=== PATIENT | male | born 1955 | race Caucasian/White ===

== ENCOUNTER 2019-10-04 16:47 | Emergency (ER) | payer SELFPAY ==
[~2019-10-04] VITALS: Ht 177.8 cm; Wt 95.3 kg
[~2019-10-04 16:47] MED LIST: metroNIDAZOLE 500 MG TABLET PO SCH
--- NOTE | 2019-10-04 17:10 | NUR ---
RECEIVED AND IN ROOM 7. VOMITING, EMESIS BAG PROVIDED
[2019-10-04] MEDS ORDERED: NACL 0.9% 1,000 ML IV ONE (17:16)
--- NOTE | 2019-10-04 17:20 | NUR ---
DR GALDAMEZ IN TO ASSESS
--- NOTE | 2019-10-04 18:00 | NUR ---
RESP UNLABORED, CLEAR MENTATION AND SPEECH, DENIES CP/SOB. VOMITNG UPON ARRIVAL DIAPHORETIC, C/O SEVERE ABD PAIN, ADMITTED TO EATING SPOILED FOOD WHILE LIVING HOMELESS ABD PAIN SUDDEN ONSET 2 HOURS AGO.
[2019-10-04 18:09] LABS: HEMATOCRIT 45.7 % (36-54)
[2019-10-04 18:22] VITALS: BP_SYST 147
[2019-10-04 18:31] LABS: CALCIUM 9.7 mg/dL (8.4-11.0); CREATININE 1.22 mg/dL (0.55-1.30); HEMOGLOBIN 15.2 g/dL (14.0-18.0); MEAN CORPUSCULAR HEMOGLOBIN 31 pg (27-31); MEAN CORPUSCULAR HGB CONC 33 % (32-36); MEAN CORPUSCULAR VOLUME 94 fL (79.0-98.0); PLATELET COUNT (AUTO) 332 K/uL (130-430); POTASSIUM 3.7 mmol/L (3.5-5.1); RED BLOOD CELL COUNT(AUTO) 4.88 MIL/uL (4.2-6.2); RED CELL DISTRIBUTION WIDTH 14.7 % (9.0-15.0); WHITE BLOOD COUNT (AUTO) 18.3 K/uL (4.8-10.8)
[2019-10-04 18:33] LABS: PROTHROMBIN TIME 10.3 SECS (9.5-12.5)
[2019-10-04 18:36] LABS: ALBUMIN 4.1 g/dL (3.4-4.8); TOTAL BILIRUBIN 0.5 mg/dL (0.0-1.0)
--- NOTE | 2019-10-04 18:50 | NUR ---
IV HL 18 GUAGE LT AC, LABS EKG AND URINE PENDING. IV HYDRATION
[2019-10-04 18:54] LABS: BAND % (MANUAL) 16 % (0-6); BASOPHILS % (MANUAL) 0 % (0-2); EOSINOPHILS % (MANUAL) 0 % (0-7); LYMPHOCYTES % (MANUAL) 4 % (20-46); MONOCYTES % (MANUAL) 3 % (0-11)
--- NOTE | 2019-10-04 19:00 | NUR ---
RESTLESS, VOMITING, C/O INCREASED PAIN.
[2019-10-04 19:08] LABS: BILIRUBIN,URINE NEGATIVE (NEGATIVE); BLOOD, URINE NEGATIVE (NEGATIVE); CLARITY/URINE CLEAR (CLEAR); COLOR,URINE YELLOW (YELLOW); GLUCOSE,URINE NEGATIVE (NEGATIVE); KETONES,URINE 1+ (NEGATIVE); LEUKOCYTE ESTERASE ,URINE NEGATIVE (NEGATIVE); NITRITE, URINE NEGATIVE (NEGATIVE); PROTEIN URINE TRACE (NEGATIVE); UROBILINOGEN,URINE 0.2 (0.2-1.0)
--- NOTE | 2019-10-04 19:10 | NUR ---
DR GALDAMEZ IN TO ASSESS
[2019-10-04] MEDS ORDERED: metroNIDAZOLE 500 mg/NS 100 ML IV ONE (19:15)
[2019-10-04] MEDS ORDERED: IOHEXOL 100 ML IV ONE (20:34)
--- NOTE | 2019-10-04 20:42 | NUR ---
BACK FROM CT
[2019-10-04] MEDS ORDERED: ONDANSETRON HCL 4 MG/2 ML VIAL IVP ONE (21:30)
[2019-10-04] MEDS ORDERED: KETOROLAC TROMETHAMINE 30 MG VIAL IVP ONE (21:30)
[2019-10-04] MEDS ORDERED: ONDANSETRON HCL 4 MG/2 ML VIAL ONE (21:36)
[2019-10-04] MEDS ORDERED: CIPROFLOXACIN LACT 400 MG/D5W 200 ML IV ONE (21:45)
[2019-10-04] MEDS ORDERED: NACL 0.9% 1,000 ML IV SCH (22:12)
[2019-10-04] MEDS ORDERED: ZOLPIDEM TARTRATE 5 MG TABLET PO PRN (22:15)
[2019-10-04] MEDS ORDERED: ACETAMINOPHEN 500 MG TABLET PO PRN (22:15)
[2019-10-04] MEDS ORDERED: HYDROcodone/ACETAMIN 7.5-325 MG TAB PO PRN (22:15)
[2019-10-04] MEDS ORDERED: DOCUSATE SODIUM 100 MG/10 ML UDC PO PRN (22:15)
[2019-10-04] MEDS ORDERED: ONDANSETRON HCL 4 MG/2 ML VIAL IVP PRN (22:15)
[2019-10-04] MEDS ORDERED: POTASSIUM CHLORIDE 20 MEQ TAB.PRT.SR PO PRN (22:15)
--- NOTE | 2019-10-04 22:23 | NUR ---
ADMIT ORDERS RECEIVED, PT AWARE AND AGREE TO CARE
[2019-10-04 22:45] LABS: BARBITURATE, URINE NEGATIVE (NEG <=200); BENZODIAZEPINE, URINE NEGATIVE (NEG <=150); CANNABINOID, URINE POSITIVE (NEG <=50); COCAINE, URINE NEGATIVE (NEG <=150); METHAMPHETAMINES SCREEN,URINE NEGATIVE (NEG <=500); OPIATE, URINE NEGATIVE (NEG <=100); PHENCYCLIDINE SCREEN,URINE NEGATIVE (NEG <=25); UR TRICYCLIC ANTIDEPRESSANTS NEGATIVE (NEG <=300); URINE AMPHETAMINE NEGATIVE (NEG <=500); URINE METHADONE NEGATIVE (NEG <=200); URINE OXYCODONE SCREEN NEGATIVE (NEG <=100); URINE PROPOXYPHENE SCREEN NEGATIVE (NEG <=300)
[2019-10-04 22:49] LABS: FREE T4 (FREE THYROXINE) 0.8 ng/dL (0.6-1.6); PHOSPHORUS 2.7 mg/dL (2.7-4.5); THYROID STIMULATING HORMONE 4.13 uIu/mL (0.34-4.82)
[2019-10-04 23:19] VITALS: BP_SYST 101
--- NOTE | 2019-10-05 00:15 | NUR ---
Pt resting, symmetric chest rise and fall. No complaints at this time. Will continue to monitor.
--- NOTE | 2019-10-05 02:00 | NUR ---
Pt resting, no complaints at this time. Pt has symmetric chest rise and fall. No respiratory distress.
[2019-10-05 05:01] LABS: CALCIUM 8.4 mg/dL (8.4-11.0); CREATININE 1.24 mg/dL (0.55-1.30); POTASSIUM 3.8 mmol/L (3.5-5.1)
[2019-10-05 05:27] LABS: BASOPHILS # (AUTO) 0.1 K/uL (0.0-0.2); BASOPHILS % (AUTO) 0.4 % (0.0-2.0); EOSINOPHILS % (AUTO) 0.2 % (0.0-4.0); HEMATOCRIT 41.2 % (36-54); HEMOGLOBIN 13.8 g/dL (14.0-18.0); LYMPHOCYTES # (AUTO) 0.6 K/uL (1.0-5.5); MEAN CORPUSCULAR HEMOGLOBIN 31 pg (27-31); MEAN CORPUSCULAR HGB CONC 34 % (32-36); MEAN CORPUSCULAR VOLUME 93 fL (79.0-98.0); MONOCYTES # (AUTO) 0.7 K/uL (0.0-1.0); MONOCYTES % (AUTO) 4.2 % (1.7-9.3); NEUTROPHILS # (AUTO) 14.3 K/uL (1.8-7.7); NEUTROPHILS % (AUTO) 91.2 % (40.0-70.0); PLATELET COUNT (AUTO) 253 K/uL (130-430); RED BLOOD CELL COUNT(AUTO) 4.44 MIL/uL (4.2-6.2); WHITE BLOOD COUNT (AUTO) 15.7 K/uL (4.8-10.8)
[2019-10-05] MEDS ORDERED: cefTRIAXone 1 GM in D5W 50 ML IV SCH (06:00)
--- NOTE | 2019-10-05 06:27 | NUR ---
Pt moved to bed 6
--- NOTE | 2019-10-05 07:05 | NUR ---
Patient A&Ox4, sitting up in hospital bed.
--- NOTE | 2019-10-05 07:15 | NUR ---
REPORT FROM RAJESH JOHN /ANNA JOHN
[2019-10-05] MEDS ORDERED: cefTRIAXone 1 GM VIAL ONE (07:57)
[2019-10-05] MEDS ORDERED: PANTOPRAZOLE SODIUM 40 MG TAB PO SCH (09:00)
== END 2019-10-05 07:43 | disposition home or self-care (01) ==
LOC: SED 16:47 → UNDOADMIN 22:01 → SMU 22:01
DX: Z03.818 Encounter for observation for suspected exposure to other biological agents ruled out (principal); A05.9 Bacterial foodborne intoxication, unspecified; K52.9 Noninfective gastroenteritis and colitis, unspecified; J45.909 Unspecified asthma, uncomplicated; F12.90 Cannabis use, unspecified, uncomplicated
CPT/HCPCS: 36415; 71045; 74177; 80048; 80053; 80061; 80307; 81003; 82150; 82550; 83036; 83605; 83690; 83735; 83880; 84100; 84439; 84443; 84484; 85007; 85025; 85027; 85610; 85730; 87040; 87086; 93005; 96361; 96365; 96367; 96375; 99285; J0744; J1885; J2405; J3490; J7030; Q9967; U0003; C9803-CS; J0696; J7060

== ENCOUNTER 2020-05-14 18:38 | Emergency (ER) | payer SELFPAY ==
[~2020-05-14] VITALS: Ht 167.6 cm; Wt 81.6 kg
[2020-05-14 18:45] VITALS: BP_SYST 145
[2020-05-14] MEDS ORDERED: DIPH-TET-PERTUS Vaccine 0.5 ML VIAL (ADACEL) I.M. ONE (19:00)
[2020-05-14] MEDS ORDERED: BACITRACIN 1 GM OINT TP ONE (19:13)
[2020-05-14] MEDS ORDERED: NEOMY SULF/BACITRAC ZN/POLY 28 GM OINT..GM. TP ONE (19:15)
[2020-05-14] MEDS ORDERED: cephALEXin 500 MG CAPSULE PO ONE (19:15)
[2020-05-14 19:26] VITALS: BP_SYST 145
== END 2020-05-14 19:26 | disposition home or self-care (01) ==
LOC: SED 18:38
DX: S60.451A Superficial foreign body of left index finger, initial encounter (principal); J45.909 Unspecified asthma, uncomplicated; F17.210 Nicotine dependence, cigarettes, uncomplicated; F12.90 Cannabis use, unspecified, uncomplicated; Z88.0 Allergy status to penicillin; W22.8XXA Striking against or struck by other objects, initial encounter; Y93.89 Activity, other specified; Y92.89 Other specified places as the place of occurrence of the external cause; Y99.8 Other external cause status
CPT/HCPCS: 73140-TC; 90715; 99283

== ENCOUNTER 2021-02-20 18:47 | Inpatient (IN) | payer OTHER, SELFPAY ==
[~2021-02-20] VITALS: Ht 167.6 cm; Wt 68.0 kg
[2021-02-20 19:03] VITALS: BP_SYST 140
[2021-02-20 19:55] LABS: BASOPHILS % (AUTO) 0.3 % (0.0-2.0); EOSINOPHILS % (AUTO) 0.3 % (0.0-4.0); HEMATOCRIT 40.4 % (36-54); HEMOGLOBIN 13.8 g/dL (14.0-18.0); LYMPHOCYTES # (AUTO) 1.2 K/uL (1.0-5.5); LYMPHOCYTES % (AUTO) 9.8 % (20.5-51.5); MEAN CORPUSCULAR HEMOGLOBIN 32 pg (27-31); MEAN CORPUSCULAR HGB CONC 34 % (32-36); MEAN CORPUSCULAR VOLUME 94 fL (79.0-98.0); MONOCYTES # (AUTO) 0.7 K/uL (0.0-1.0); MONOCYTES % (AUTO) 5.8 % (1.7-9.3); NEUTROPHILS # (AUTO) 10.3 K/uL (1.8-7.7); NEUTROPHILS % (AUTO) 83.8 % (40.0-70.0); PLATELET COUNT (AUTO) 310 K/uL (130-430); RED BLOOD CELL COUNT(AUTO) 4.31 MIL/uL (4.2-6.2); RED CELL DISTRIBUTION WIDTH 13.6 % (9.0-15.0); WHITE BLOOD COUNT (AUTO) 12.2 K/uL (4.8-10.8)
[2021-02-20 20:29] LABS: ANION GAP 10 (5-15); CALCIUM 9.5 mg/dL (8.4-11.0); CHLORIDE 99 mmol/L (98-107); CREATININE 0.94 mg/dL (0.55-1.30); GLUCOSE 116 mg/dL (70-99); POTASSIUM 3.7 mmol/L (3.5-5.1); SODIUM SERUM 137 mmol/L (136-145); UREA NITROGEN, BLOOD 15 mg/dL (8-21)
[2021-02-20] MEDS ORDERED: KETOROLAC TROMETHAMINE 60 MG/2 ML VIAL IM ONE (20:30)
[2021-02-20 20:33] LABS: GFR AFRICAN AMERICAN 104 mL/min (>90)
[2021-02-20 20:39] LABS: ALANINE AMINOTRANSFERASE 26 U/L (12-78); ALBUMIN 3.6 g/dL (3.4-4.8); ASPARTATE AMINOTRANSFERASE 18 U/L (10-37); LIPASE 133 U/L (73-393); TOTAL BILIRUBIN 0.4 mg/dL (0.0-1.0)
[2021-02-20] MEDS ORDERED: MORPHINE 2 MG/ML INJ. SYRINGE IVP ONE (21:45)
[2021-02-21] MEDS ORDERED: MORPHINE 4 MG INJ. 4 MG/ML VIAL IVP ONE (01:15)
[2021-02-21] MEDS ORDERED: D5/0.45 NS 1,000 ML IV SCH (02:30)
[2021-02-21] MEDS ORDERED: ALBMDI INH (07:37)
[2021-02-21 08:05] VITALS: BP_SYST 150
[2021-02-21 08:23] LABS: BILIRUBIN,URINE 1+ (NEGATIVE); BLOOD, URINE NEGATIVE (NEGATIVE); CLARITY/URINE TURBID (CLEAR); COLOR,URINE YELLOW (YELLOW); GLUCOSE,URINE NEGATIVE (NEGATIVE); KETONES,URINE TRACE (NEGATIVE); LEUKOCYTE ESTERASE ,URINE NEGATIVE (NEGATIVE); NITRITE, URINE NEGATIVE (NEGATIVE); PROTEIN URINE TRACE (NEGATIVE); UROBILINOGEN,URINE 0.2 (0.2-1.0)
[2021-02-21 08:46] LABS: BACTERIA,URINE FEW /HPF (None Seen); RBC,URINE 0-3 /HPF (0-3); URINE AMORPHOUS URATE 2+ /HPF (None Seen); WBC,URINE 0-3 /HPF (0-3)
[2021-02-21 09:29] VITALS: BP_SYST 150
[2021-02-21 12:00] VITALS: BP_SYST 126
== END 2021-02-21 12:45 | disposition left against medical advice (07) | DRG 390 ==
LOC: SED 18:47 → SMU 02-21 02:22
PROVIDERS: ADMIT Preventive Medicine Preventive Medicine/Occupational Environmental Medicine; ATTEND Preventive Medicine Preventive Medicine/Occupational Environmental Medicine
DX: K56.699 Other intestinal obstruction unspecified as to partial versus complete obstruction (principal); J45.909 Unspecified asthma, uncomplicated; G62.9 Polyneuropathy, unspecified; Z53.29 Procedure and treatment not carried out because of patient's decision for other reasons; Z20.822 Contact with and (suspected) exposure to COVID-19; R73.9 Hyperglycemia, unspecified; D72.829 Elevated white blood cell count, unspecified; Z59.00 Homelessness unspecified; Z88.0 Allergy status to penicillin
CPT/HCPCS: 36415; 76376; 80053; 81000; 83690; 84484; 85025; 93005; 96372; 96374; 99285; J1885; J2270